=== PATIENT | female | born 1950 | race American Indian/Alaskan Native ===

== ENCOUNTER 2016-07-10 10:07 | Outpatient (CLI) | payer MEDICARE ==
--- NOTE | 2016-07-10 11:59 | Mammography Report ---
BONE DEXA:07/10/16 10:07:00 CLINICAL: Postmenopausal. No comparison. TECHNIQUE: Two site bone DEXA performed on an Hologic scanner. FINDINGS: The average BMD of the lumbar spine L1-L4 is 1.054g/cm squared with a T-score of -0.9 and a Z-score of +1.1. The average BMD of the left hip is 0.959g/cm squared with a T-score of -0.5 and a Z-score of +0.5. IMPRESSION: 1. WHO classification: Normal with average fracture risk based on lumbar spine measurements. 2. WHO classification: Osteopenia with increased fracture risk based on left hip measurements. RECOMMENDATION: Clinical correlation and routine screening. DEFINITIONS: BMD = Bone Mineral Density T-score = BMD related to mean peak bone mass of young adult (mean expressed in Standard Deviation) Z-score = Age matched BMD expressed in SD World Health Organization (WHO) Diagnostic Criteria Normal T-score > -1 SD Osteopenia T-score between -1 and -2.4 SD Osteoporosis T-score -2.5 SD or below NOTE: BMD is not the only risk factor for fracture. One should also consider factors such as the patient's age, risk of falling, previous osteoporotic fracture, family history of osteoporotic fractures, current smoker, and low body weight. Z-scores are not calculated if >80 years of age.
--- NOTE | 2016-07-10 14:44 | Mammography Report ---
BILATERAL DIGITAL SCREENING MAMMOGRAM with CAD: 07/10/16 10:07:00 CLINICAL: Routine screening. COMPARISON:05/19/15 mammogram from [facility], [place], [place] FINDINGS: The breasts are heterogeneously dense, which may obscure small masses.A left upper periareolar biopsy clip. A few bilateral benign calcifications. No mass, architectural distortion or suspicious calcifications. IMPRESSION: No mammographic evidence of malignancy. BI-RADS CATEGORY: 2 - - Benign RECOMMENDATION: Routine mammographic screening in one year. COMMENT: Patient follow-up letters are generated by our [email or web address] application. The
== END 2016-07-10 10:08 | disposition home or self-care (01) ==
LOC: SPVWC 10:07
PROVIDERS: ATTEND Family Medicine
DX: Z12.31 Encounter for screening mammogram for malignant neoplasm of breast (principal); M85.88 Other specified disorders of bone density and structure, other site; Z78.0 Asymptomatic menopausal state
CPT/HCPCS: 77080; G0202; 77067

== ENCOUNTER 2017-07-11 10:16 | Outpatient (CLI) | payer MEDICARE ==
--- NOTE | 2017-07-11 11:04 | Mammography Report ---
BILATERAL MAMMOGRAM: FINDINGS: The breast tissue is heterogeneously dense, which could obscure detection of small masses (approximately 50%-75% glandular). No mass, distortion, suspicious calcification, or skin change is seen. Left biopsy marker. No interval change compared to prior exam in July 2016. CAD was utilized. IMPRESSION: Negative mammogram. There is no mammographic evidence of malignancy. RECOMMENDATION: Follow-up per ACS guidelines. BI-RADS CATEGORY: 1 = Negative ACR BI-RADS MAMMOGRAPHIC CODES: 0 = Needs additional imaging evaluation; 1 = Negative; 2 = Benign; 3 = Probably benign; 4 = Suspicious; 5 = Malignant; 6 = Known biopsy-proven malignancy COMMENT: 1. Dense breast tissue, i.e., adenosis, fibrocystic changes, etc., may obscure an underlying neoplasm. 2. Approximately 10% of cancers are not detected with mammography. 3. A negative mammography report should not delay biopsy if a clinically suspicious mass is present. COMMENT: Patient follow-up letters are generated in [employer].
== END 2017-07-11 10:17 | disposition home or self-care (01) ==
LOC: SPVWC 10:16
PROVIDERS: ATTEND Family Medicine
DX: Z12.31 Encounter for screening mammogram for malignant neoplasm of breast (principal)
CPT/HCPCS: 77067

== ENCOUNTER 2017-08-08 11:21 | Day surgery (SDC) | payer MEDICARE ==
[2017-08-07 10:32] LABS: Eosinophils # (Auto) 0.1 K/mm3 (0.0-0.4); Eosinophils % (Auto) 1.4 % (0.0-4.3); Hematocrit 32.6 % (30.3-42.9); Hemoglobin 10.6 gm/dl (10.1-14.3); Lymphocytes # (Auto) 1.8 K/mm3 (1.2-5.4); Lymphocytes % (Auto) 36.6 % (13.4-35.0); Mean Corpuscular HGB Conc 33 % (30-34); Mean Corpuscular Hemoglobin 28 pg (28-32); Mean Corpuscular Volume 85 fl (79-97); Monocytes # (Auto) 0.4 K/mm3 (0.0-0.8); Monocytes % (Auto) 8.5 % (0.0-7.3); Platelet Count 309 K/mm3 (140-440); Red Blood Count 3.85 M/mm3 (3.65-5.03); Red Cell Distribution Width 14.8 % (13.2-15.2)
--- NOTE | 2017-08-07 10:36 | Anesthesia Consultation ---
Anesthesia Consult and Med Hx Date of service: 08/07/17 - Airway Anesthetic Teeth Evaluation: Good ROM Head & Neck: Adequate Mental/Hyoid Distance: Adequate Mallampati Class: Class I Intubation Access Assessment: Good - Pulmonary Exam CTA: Yes - Cardiac Exam Cardiac Exam: RRR - Pre-Operative Health Status ASA Pre-Surgery Classification: ASA3 Proposed Anesthetic Plan: General - Pulmonary Hx Smoking: Yes (1/2 PPD SINCE 40 Y.O.) - Cardiovascular System Hx Hypertension: Yes (10 YEARS) - Central Nervous System Hx Psychiatric Problems: No - Endocrine Hx Non-Insulin Dependent Diabetes: Yes - Hematic Hx Anemia: Yes - Other Systems Hx Alcohol Use: Yes (OCCAS) Hx Substance Use: No Hx Cancer: No
[2017-08-07 10:57] LABS: BUN/Creatinine Ratio 18; Blood Urea Nitrogen 16 mg/dL (7-17); Calcium 9.6 mg/dL (8.4-10.2); Hemolysis Index 9
[~2017-08-08 11:21] MED LIST: ANCEF/STERILE WATER 2 GM/20 ML IV NR; DILAUDID IV PRN; DIPRIVAN 10 MG/ML IV ONE; NACL 0.9% 1000 ML 1,000 ML IV SCH; PEPCID PO NR; SUBLIMAZE ONE; VERSED IV NR; ZOFRAN IV PRN
[2017-08-08] MEDS ORDERED: MARCAINE-EPI 0.5%-1:200,000 INFILTRATI ONE ×3 (11:42→14:20)
[2017-08-08] MEDS ORDERED: NACL BACTERIOSTATIC INFILTRATI ONE (11:46)
--- NOTE | 2017-08-08 12:17 | Anesthesia Day of Surgery ---
Anesthesia Day of Surgery - Day of Surgery Patient Examined: Yes Patient H&P Reviewed: Yes Patient is NPO: Yes Beta Blockers: No
[2017-08-08] MEDS ORDERED: NEOSTIGMINE ONE (14:26)
[2017-08-08] MEDS ORDERED: ROBINUL ONE (14:26)
[2017-08-08] MEDS ORDERED: XYLOCAINE CARDIAC IV ONE (14:26)
[2017-08-08] MEDS ORDERED: ZOFRAN ONE (14:26)
[2017-08-08] MEDS ORDERED: XYLOCAINE MPF 2% ONE (14:26)
[2017-08-08] MEDS ORDERED: QUELICIN ONE (14:26)
[2017-08-08] MEDS ORDERED: ZEMURON IV ONE (14:31)
[2017-08-08] MEDS ORDERED: TORADOL ONE (14:31)
--- NOTE | 2017-08-08 14:35 | Operative Report ---
Operative Report Operative Report: Date of procedure: 08/08/2017 Pre-operative diagnosis: Biliary colic and cholelithiasis Post-operative diagnosis: Same Procedure name(s): Laparoscopic cholecystectomy Surgeon: Luisito Flower MD Reinsurance Clerk: Judy Stevens MD Anesthesia: General EBL: Minimal Complications: None Instrument Count: correct Indications: This is a 66-year-old female with a history of abdominal pain. Her workup was consistent with biliary etiology. The risks and benefits of the above-noted procedure were discussed and all questions were answered. She was subsequently brought to the OR. Findings: As above Procedure: We reviewed the informed consent. We placed the patient supine upon the table. After adequate anesthesia was reached, the patient was prepped and draped in usual sterile fashion. A 5 mm incision was made the level of umbilicus and a Veress needle was placed at this position. The abdomen was then insufflated to 15 mmHg and a 5 mm trocar was placed through the umbilical incision. We inserted the camera at this time. Under direct vision and after infiltration of local anesthetic an 11 mm port was placed in the epigastric location. This was followed by placement of two five mm ports in the right upper quadrant. We identified the gallbladder and the fundus was grasped. This was retracted superiorly. We then grasped the infundibulum and retracted it laterally. At this time we dissected free the cystic duct infundibular junction until the triangle of Calot was clearly identified. We placed 3 clips proximally on the cystic duct, 2 distally. We placed 2 clips proximally on the cystic artery. We transected the cystic duct sharply. We transected the cystic artery using electrocautery. We then dissected the gallbladder free from its fossa using electrocautery. This was placed in Endo Catch bag and removed the abdomen to be sent to pathology for further evaluation. We assured hemostasis at this time. We then evacuated the insufflation. We removed all ports and closed all port sites using a 4-0 Monocryl in a subcuticular fashion. The wounds were bandaged sterilely. The patient tolerated procedure well. They were taken to PACU in no apparent distress after extubation.
--- NOTE | 2017-08-08 14:38 | Short Stay Summary ---
Short Stay Documentation Date of service: 08/08/17 - History H&P: obtained from office - Allergies and Medications Current Medications: Allergies latex Allergy (Verified 08/06/17 14:39) Hives LATEX GLOVES Sulfa (Sulfonamide Antibiotics) Allergy (Verified 08/06/17 14:39) Swelling Home Medications Medication Instructions Recorded Confirmed Last Taken Type Chlorthalidone 25 mg PO DAILY 08/06/17 08/06/17 08/07/17 History Cholecalciferol (Vitamin D3) 2,000 unit PO QDAY 08/06/17 08/06/17 08/07/17 History [Vitamin D3 2,000 unit] Cinnamon Bark [Cinnamon] 500 mg PO DAILY 08/06/17 08/06/17 08/07/17 History Ferrous Sulfate 1 tab PO DAILY 08/06/17 08/06/17 08/08/17 08:30 History Liraglutide [Victoza 2-Aubrey] 1.8 mg SQ QDAY 08/06/17 08/06/17 08/07/17 History Lisinopril [Zestril] 20 mg PO QDAY 08/06/17 08/06/17 08/08/17 08:30 History Metformin HCl [Glucophage] 1,000 mg PO BID 08/06/17 08/06/17 08/07/17 History [place]hill-3 Fatty Acids [[place]hill-3] 100 mg PO DAILY 08/06/17 08/08/17 08/05/17 History Aspirin [Aspirin EC] 81 mg PO DAILY 08/08/17 08/08/17 08/05/17 History Active Medications Cefazolin Sodium (Ancef/Sterile Water 2 Gm/20 Ml) 2 gm IV PREOP NR Stop: 08/08/17 23:59 Sodium Chloride (Nacl 0.9% 1000 Ml) 1,000 mls @ 75 mls/hr IV DIRECT JENIFFER Last Admin: 08/08/17 12:20 Dose: 75 mls/hr Midazolam HCl (Versed) 2 mg IV PREOP NR Stop: 08/08/17 23:59 Last Admin: 08/08/17 12:33 Dose: 2 mg - Brief post op/procedure progress note Date of procedure: 08/08/17 Pre-op diagnosis: biliary colic Post-op diagnosis: same Procedure: Laparoscopic cholecystectomy Anesthesia: GETA Surgeon: VANESSA ARNETT Stewardess Supervisor: PRISCILLA CARCAMO Estimated blood loss: minimal Pathology: list (gallbladder) Specimen disposition: to lab Condition: stable - Disposition Condition at discharge: Stable Disposition: [id number] TO HOME OR SELFCARE Short Stay Discharge Plan Activity: no restrictions Diet: low fat Wound: open to air, keep clean and dry Follow up with: MARCO LOJA MD [Primary Care Provider] - 7 Days VANESSA ARNETT MD [Staff Physician] - 7 Days Prescriptions: Ondansetron [Zofran TAB] 4 mg PO Q8HR PRN #20 tablet PRN Reason: Nausea oxyCODONE /ACETAMINOPHEN [Percocet 5/325] 1 tab PO Q6HR PRN #30 tablet PRN Reason: Pain
--- NOTE | 2017-08-08 15:08 | Post Anesthesia Evaluation ---
- Post Anesthesia Evaluation Patient Participated: Yes Airway Patent: Yes Stable Respiratory Function: Yes Nausea/Vomiting: No Temp > 96.8F: Yes Pain Manageable: Yes Adequeate Hydration: Yes Anesthesia Complications: No
[2017-08-08] MEDS ORDERED: PERCOCET 5/325 PO PRN (15:36)
[2017-08-08 15:52] VITALS: BP 123/70
== END 2017-08-08 16:25 | disposition home or self-care (01) ==
LOC: OR 11:21
PROVIDERS: ATTEND Surgery
PROC: 0FT44ZZ Resection of Gallbladder, Percutaneous Endoscopic Approach (ICD-10-PCS; principal; 2017-08-08)
DX: K80.64 Calculus of gallbladder and bile duct with chronic cholecystitis without obstruction (principal); I10 Essential (primary) hypertension; E11.9 Type 2 diabetes mellitus without complications; F17.210 Nicotine dependence, cigarettes, uncomplicated; Z79.899 Other long term (current) drug therapy; Z88.2 Allergy status to sulfonamides; Z91.040 Latex allergy status
CPT/HCPCS: 36415; 47562; 80048; 82962; 85025; 88304; J0330; J0690; J1885; J2001; J2250; J2405; J2704; J2710; J3010; J7030

== ENCOUNTER 2018-10-09 09:43 | Outpatient (CLI) | payer MEDICARE ==
--- NOTE | 2018-10-09 10:33 | Mammography Report ---
BONE DENSITY STUDY: DEFINITIONS: BMD = Bone Mineral Density T-score = BMD related to mean peak bone mass of young adult (mean expressed in Standard Deviation) Z-score = Age matched BMD expressed in SD World Health Organization (WHO) Diagnostic Criteria Normal T-score > -1 SD Osteopenia T-score between -1 and -2.4 SD Osteoporosis T-score -2.5 SD or below FINDINGS: The weighted average BMD of lumbar spine L1-L4 is 1.061 with a T-score of -0.8. The weighted average BMD of hip is 0.944 with a T-score of -0.6. IMPRESSION: The patient's T-score is diagnostic for normal bone density and low relative risk for fracture. NOTE: BMD is not the only risk factor for fracture; also consider factors such as the patient's age, risk of falling, previous osteoporotic fracture, family history of osteoporotic fractures, current smoker, and low body weight. Carter's triangle is a region of interest in femur, predominantly of trabecular bone. It is not a true anatomic site, and ISCD does not recommend its use clinically.
== END 2018-10-09 09:44 | disposition home or self-care (01) ==
LOC: SPVWC 09:43
PROVIDERS: ATTEND Family Medicine
DX: Z78.0 Asymptomatic menopausal state (principal)
CPT/HCPCS: 77080

== ENCOUNTER 2019-07-19 10:07 | Outpatient (CLI) | payer MEDICARE ==
--- NOTE | 2019-07-19 15:24 | Mammography Report ---
DIGITAL SCREENING MAMMOGRAM WITH CAD, 07/19/2019 INDICATION: Routine screening mammography. TECHNIQUE: Digital bilateral 2D mammography was obtained in the craniocaudal and mediolateral obliq ue projections. This examination was interpreted with the benefit of Computer-Aided Detection analysi s. COMPARISON: 07/17/2018 FINDINGS: Breast Density: The breasts are heterogeneously dense, which may obscure small masses. There is no evidence of dominant mass, suspicious calcifications or architectural distortion in eithe r breast. Bilateral benign calcifications. IMPRESSION: No mammographic evidence of malignancy. Follow up recommendation: Routine yearly BI-RADS Category 2: Benign. A "normal" or negative report should not discourage follow up or biopsy of a clinically significant f inding. A written summary of these findings will be mailed to the patient. The patient will be entered into a mammography reporting system which will generate a reminder letter for the patient's next appointmen t at the appropriate interval. The [employer] recommends yearly mammograms starting at age 40 and continuing as l omid as a woman is in good health. Breast MRI is recommended for women with an approximate 20-25% or greater lifetime risk of breast cancer, including women with a strong family history of breast or ova nola cancer or who have been treated for Hodgkin's disease. Signer Name: Dominik Arroyo MD Signed: 07/19/2019 3:20 PM Workstation Name: [id number]
== END 2019-07-19 10:08 | disposition home or self-care (01) ==
LOC: SPVWC 10:07
PROVIDERS: ATTEND Family Medicine
DX: Z12.31 Encounter for screening mammogram for malignant neoplasm of breast (principal)
CPT/HCPCS: 77067

== ENCOUNTER 2020-07-21 09:53 | Outpatient (CLI) | payer MEDICARE, BC ==
--- NOTE | 2020-07-21 16:33 | Mammography Report ---
DIGITAL SCREENING MAMMOGRAM WITH CAD, 07/21/2020 CLINICAL INFORMATION / INDICATION: Routine screening mammography. SCREENING MAMMO TECHNIQUE: Digital bilateral 2D mammography was obtained in the craniocaudal and mediolateral obliqu e projections. This examination was interpreted with the benefit of Computer-Aided Detection analysis . COMPARISON: Prior mammograms 07/19/2019 and 07/17/2018 FINDINGS: Breast Density: The breasts are heterogeneously dense, which may obscure small masses. No dominant mass, suspicious calcifications, or architectural distortion in either breast. There are stable benign-appearing calcifications seen in both breasts and a stable biopsy clip in the left breast. There has been no significant change compared with the prior examinations. IMPRESSION: No mammographic evidence of malignancy. Follow up recommendation: Routine yearly BI-RADS Category 2: Benign. A "normal" or negative report should not discourage follow up or biopsy of a clinically significant f inding. A written summary of these findings will be mailed to the patient. The patient will be entered into a mammography reporting system which will generate a reminder letter for the patient's next appointmen t at the appropriate interval. The [employer] recommends yearly mammograms starting at age 40 and continuing as l omid as a woman is in good health. Breast MRI is recommended for women with an approximate 20-25% or greater lifetime risk of breast cancer, including women with a strong family history of breast or ova nola cancer or who have been treated for Hodgkin's disease. Signer Name: Noemi Berman MD Signed: 07/21/2020 4:29 PM Workstation Name: [email or web address]
== END 2020-07-21 09:54 | disposition home or self-care (01) ==
LOC: SPVWC 09:53
PROVIDERS: ATTEND Family Medicine
DX: Z12.31 Encounter for screening mammogram for malignant neoplasm of breast (principal)
CPT/HCPCS: 77067

== ENCOUNTER 2020-10-13 11:00 | Outpatient (CLI) | payer MEDICARE, BC | END 2020-10-13 11:01 | disposition home or self-care (01) | LOC: SPVWC 11:00 | PROVIDERS: ATTEND Family Medicine | DX: Z13.820 Encounter for screening for osteoporosis (principal); M81.0 Age-related osteoporosis without current pathological fracture | CPT/HCPCS: 77080 ==

== ENCOUNTER 2021-07-24 10:24 | Outpatient (CLI) | payer MEDICARE, BC ==
--- NOTE | 2021-07-25 11:47 | Mammography Report ---
DIGITAL SCREENING MAMMOGRAM WITH CAD, 07/24/2021 CLINICAL INFORMATION / INDICATION: Routine screening mammography. SCREENING MAMMO Z12.31 TECHNIQUE: Digital bilateral 2D mammography was obtained in the craniocaudal and mediolateral obliqu e projections. This examination was interpreted with the benefit of Computer-Aided Detection analysis . COMPARISON: 07/21/2020 and 07/19/2019 FINDINGS: Breast Density: The breasts are heterogeneously dense, which may obscure small masses. No dominant mass, suspicious calcifications, or architectural distortion in either breast. Largely unchanged nodular densities in the breasts, commonly fibroglandular or fibrocystic change. B iopsy change again seen on the left. IMPRESSION: No mammographic evidence of malignancy. Follow up recommendation: Routine yearly BI-RADS Category 2: BENIGN. A "normal" or negative report should not discourage follow up or biopsy of a clinically significant f inding. A written summary of these findings will be mailed to the patient. The patient will be entered into a mammography reporting system which will generate a reminder letter for the patient's next appointmen t at the appropriate interval. The [employer] recommends yearly mammograms starting at age 40 and continuing as l omid as a woman is in good health. Breast MRI is recommended for women with an approximate 20-25% or greater lifetime risk of breast cancer, including women with a strong family history of breast or ova nola cancer or who have been treated for Hodgkin's disease. Signer Name: Chirag Hernandez MD Signed: 07/25/2021 10:22 AM Workstation Name: [id number]
== END 2021-07-24 10:25 | disposition home or self-care (01) ==
LOC: SPVWC 10:24
PROVIDERS: ATTEND Family Medicine
DX: Z12.31 Encounter for screening mammogram for malignant neoplasm of breast (principal); N64.89 Other specified disorders of breast
CPT/HCPCS: 77067